=== PATIENT | female | born 1940 | race Caucasian/White ===

== ENCOUNTER 2022-06-28 14:18 | Inpatient (IN) ==
[2022-06-28] MEDS ORDERED: SODIUM CHLORIDE 0.9% 2,000 ML IV STA (14:33)
[2022-06-28] MEDS ORDERED: cefTRIAXone 2,000 MG in SODIUM CHLORIDE 0.9% 100 ML IV ONE (14:36)
[2022-06-28 15:06] LABS: Hematocrit 31.7 VOL% (35.7-47.0); Hemoglobin 10.7 GM/DL (12.0-16.0); Immature Granulocytes % 0.4 %; Immature Granulocytes Absolute 0.02 #; Lymphocytes # 0.5 10*3/uL (1.4-4.0); Mean Corpuscular HGB Conc 33.8 GM/DL (32-36); Mean Corpuscular Volume 88.1 FL (87-102); Mean Platelet Volume 10.9 FL (9.6-12.0); Monocytes # 0.2 10*3/uL (0.11-0.8); Monocytes % 3.9 % (1.7-12.7); Neutrophils % 85.7 % (38.7-73.9); Platelet Count 169 T/CUMM (130-400); Red Cell Distribution Width 13.5 % (9.3-17.3); White Blood Count 4.6 T/CUMM (4-12)
[2022-06-28 15:17] LABS: INR 1.2; PT Patient Result 12.6 SECS (10.1-12.1)
[2022-06-28 15:26] LABS: Albumin 2.6 G/DL (3.4-5.0); Bilirubin,Total 0.9 MG/DL (0.20-1.00); Calcium 8.5 MG/DL (8.5-10.1); Osmolality,Calculated 291.8 MOS/KG (273-304); Potassium 4.8 MMOL/L (3.5-5.1); Total Protein 4.9 G/DL (6.4-8.2)
[2022-06-28] MEDS ORDERED: DOCUSATE SODIUM 100 MG CAPSULE PO PRN (16:32)
[2022-06-28] MEDS ORDERED: ONDANSETRON 4 MG/2 ML VIAL IV PRN (16:32)
[2022-06-28] MEDS ORDERED: hydrALAZINE 20 MG/1 ML VIAL IV PRN (16:39)
[2022-06-28] MEDS ORDERED: MORPHINE 2 MG/1 ML SYRINGE IV STA (16:42)
[2022-06-28 16:44] LABS: Bilirubin,Urine Small mg/dL (Negative); Blood, Urine Moderate mg/dL (Negative); Glucose,Urine (UA) Negative (Negative); Ketones,Urine Trace mg/dL (Negative); Nitrite,Urine Negative (Negative); Protein,Urine Trace mg/dL (Negative); Urine Appearance Clear (Clear); Urine Color Yellow (Yellow); Urine Specific Gravity >= 1.030 (1.001-1.035)
[2022-06-28] MEDS ORDERED: ACETAMINOPHEN 325 MG TABLET PO PRN (16:44)
[2022-06-28 16:45] LABS: Urine Urobilinogen 0.2 eU/dL (<2.0)
[2022-06-28 16:47] LABS: Hyaline Casts,Urine 1 /LPF (0-3); Mucus,Urine Occasional /LPF (Occasional)
[2022-06-28] MEDS: ALBUTEROL 2.5 MG/3 ML NEB RESP TX SCH (16:50)
[2022-06-28] MEDS ORDERED: AZITHROMYCIN INJ 500 MG in SODIUM CHLORIDE 0.9% 250 ML IV SCH (17:00)
[2022-06-28] MEDS ORDERED: PIPERACILLIN/TAZOBACTAM 3,375 MG in SODIUM CHLORIDE 0.9% 100 ML IV SCH (17:00)
[2022-06-28] MEDS: SODIUM CHLORIDE 0.9% 1,000 ML IV SCH (17:38)
[2022-06-28] MEDS ORDERED: LORazepam 2 MG/1 ML VIAL IV ONE (17:41)
[2022-06-28] MEDS ORDERED: LORazepam 2 MG/1 ML VIAL ONE (17:43)
[2022-06-28] MEDS ORDERED: LACTATED RINGERS 1,000 ML IV ONE (17:45)
[2022-06-28] MEDS ORDERED: NOREPINEPHRINE DRIP 8 MG/250 ML PREMIX IV PRN (18:41)
[2022-06-28] MEDS: CLINDAMYCIN INJ 600 MG/50 ML PREMIX IV SCH (20:19)
[2022-06-28 20:21] LABS: CKMB % 3.79 %; Calcium 7.2 MG/DL (8.5-10.1); Osmolality,Calculated 297.3 MOS/KG (273-304)
[2022-06-29] MEDS: SODIUM CHLORIDE 0.9% 1,000 ML IV SCH ×2 (00:26→08:20)
[2022-06-29] MEDS: ALBUTEROL 2.5 MG/3 ML NEB RESP TX SCH ×3 (01:05→12:10)
[2022-06-29] MEDS: CLINDAMYCIN INJ 600 MG/50 ML PREMIX IV SCH ×3 (01:18→15:15)
[2022-06-29 06:44] LABS: Hematocrit 27.7 VOL% (35.7-47.0); Immature Granulocytes % 0.3 %; Immature Granulocytes Absolute 0.03 #; Lymphocytes # 0.1 10*3/uL (1.4-4.0); Lymphocytes % 1.2 % (21.3-54.2); Mean Corpuscular HGB Conc 32.5 GM/DL (32-36); Mean Corpuscular Volume 89.9 FL (87-102); Mean Platelet Volume 10.6 FL (9.6-12.0); Monocytes # 0.4 10*3/uL (0.11-0.8); Monocytes % 4.8 % (1.7-12.7); Neutrophils % 93.7 % (38.7-73.9); Platelet Count 198 T/CUMM (130-400); Red Blood Count 3.08 MC/CUMM (3.8-5.5); Red Cell Distribution Width 14.2 % (9.3-17.3); White Blood Count 8.9 T/CUMM (4-12)
[2022-06-29 07:08] LABS: Calcium 7.5 MG/DL (8.5-10.1); Osmolality,Calculated 292.4 MOS/KG (273-304); Potassium 4.7 MMOL/L (3.5-5.1); Risk Ratio 2.18; Thyroid Stimulating Hormone 0.587 uIU/ml (0.358-3.74); VLDL Cholesterol 14.6 MG/DL
[2022-06-29] MEDS ORDERED: DEXTROSE 50% 25 GM/50 ML SYRINGE IV ONE ×2 (07:41→08:30)
[2022-06-29 08:53] LABS: Anisocytosis 2+; Band Neutrophils 19 % (0-10); Burr Cells Few; Lymphocytes 2 % (20-55); Platelet Estimate Normal; Total Cells Counted 100
[2022-06-29] MEDS ORDERED: PANTOPRAZOLE 40 MG VIAL IV SCH (09:00)
[2022-06-29] MEDS ORDERED: PANTOPRAZOLE 40 MG TABLET PO SCH (09:00)
[2022-06-29] MEDS ORDERED: LORazepam 2 MG/1 ML VIAL IV PRN (15:14)
[2022-06-29] MEDS ORDERED: MORPHINE 2 MG/1 ML SYRINGE IV PRN (15:14)
[2022-06-29] MEDS ORDERED: cefTRIAXone 2,000 MG in SODIUM CHLORIDE 0.9% 100 ML IV SCH (17:00)
[2022-06-30] MEDS: ZINC OXIDE PASTE 113 GM TUBE TOP SCH (21:25)
[2022-07-01] MEDS: ZINC OXIDE PASTE 113 GM TUBE TOP SCH (10:36)
[2022-07-01 16:15] VITALS: BP 164/82
== END 2022-07-01 17:34 | disposition hospice, inpatient (51) | DRG 871 ==
LOC: N.ED 14:18 → N.EDINP 16:32 → SUATTDRO 16:32 → N.2E 17:13 → N.ICU 19:35 → N.2E 06-29 19:25
PROVIDERS: ADMIT Internal Medicine; ATTEND Emergency Medicine

== ENCOUNTER 2022-07-01 17:45 | Inpatient (IN) ==
[2022-07-01] MEDS ORDERED: MORPHINE 2 MG/1 ML SYRINGE IV PRN (18:34)
[2022-07-03] MEDS: LORazepam 2 MG/1 ML VIAL IV PRN ×2 (10:54→16:54)
[2022-07-03 20:40] VITALS: BP 108/37
== END 2022-07-03 23:08 | disposition expired | DRG 951 ==
LOC: N.2E 17:45
PROVIDERS: ADMIT Internal Medicine; ATTEND Internal Medicine